=== PATIENT | male | born 1950 | race Caucasian/White ===

== ENCOUNTER 2023-11-12 10:28 | Outpatient (CLI) | payer OTHER, SELFPAY ==
[2023-11-12 10:56] VITALS: BP 101/82; PULSE 60; RESP 18; TEMP 36.9; O2SAT 98
[2023-11-12 11:33] VITALS: PULSE 62; O2SAT 97
[2023-11-12 11:40] VITALS: O2SAT 98
[2023-11-12 11:50] VITALS: O2SAT 98
--- NOTE | 2023-11-12 12:01 | DI.RAD_ITS ---
Exam(s) XR PAIN CLINIC FLUORO JOINT IN EXAM: XR PAIN CLINIC FLUORO JOINT IN CLINICAL HISTORY: DX: Left Knee Osteoarthritis. TECHNIQUE: Fluoroscopy was provided for the referring physician for guidance with performing pain cl inic injection procedure. COMPARISON: XR PAIN CLINIC FLUORO JOINT IN from 11/12/2023 FINDINGS: Please see procedure note for details. Fluoro time: 19.8 seconds RADIATION DOSE DELIVERED: Ka,r=1.16 mGy
--- NOTE | 2023-11-12 12:02 | DI.RAD_ITS ---
Exam(s) XR PAIN CLINIC FLUORO JOINT IN EXAM: XR PAIN CLINIC FLUORO JOINT IN CLINICAL HISTORY: DX: Right Knee Osteoarthritis. TECHNIQUE: Fluoroscopy was provided for the referring physician for guidance with performing pain cl inic injection procedure. COMPARISON: No exams were available for comparison FINDINGS: Please see procedure note for details. Fluoro time: 34.9 seconds RADIATION DOSE DELIVERED: celina Barkley=2.49 mGy
[2023-11-12] MEDS: Omnipaque 240 MG/ML 50 ML BTL IJ (12:06)
[2023-11-12] MEDS: Nerve Block Tray 1 EACH MC (12:06)
[2023-11-12] MEDS: Bupivacaine 0.5% Pres-Free 10 ML VIAL IJ (12:07)
[2023-11-12 12:08] VITALS: O2SAT 97
--- NOTE | 2023-11-12 12:32 | PDOC.PAIN_ITS ---
Date of service: 11/12/23 Time of Service: 12:41 Pain Managment Procedure Note Procedure Note Procedure Note: Genicular Nerve Block ? Location: Left and Right Superior Lateral, Superior Medial, and Inferior Medial Genicular Nerve Branches ? Pre-procedure Diagnosis: M25.561 Pain in right knee , M17.11 Unliateral primary osteoarthritis, right knee M25.562 Pain in left knee? , M17.12 Unliateral primary osteoarthritis, left knee ? Post-procedure Diagnosis:? The same as above ? Sedation:? none ? Estimated blood loss:? less than 2 cc ? Surgeon:? Pieter Do MD ? Procedure Detail:? The patient was brought to the procedure room and placed in the supine position on the fluoroscopy table. The patient's right knee was then placed on pillows as tolerated to facilitate modest flexion of the joint and offset from the non-treated knee in the lateral view. Time out was performed in the procedure room with nursing staff confirming the patient's identity, procedure to be performed, allergies, and any blood thinning or anti-p latelet medications. The skin of the target knee was prepped with ChloraPrep in a sterile fashion. Sterile gloves were used, a face mask was worn, and new single dose vials of all medications were used with the top being swabbed with alcohol and given time to dry prior to withdrawal of medication.? The superior medial and superior lateral epicondyles of the femur as well as the distal aspect of the medial tibial epicondyle was identified using an AP fluoroscopic view.?Ethyl Chloride was used to anesthetize the skin. With fluoroscopic guidance, three [25] gauge, Quincke needles were advanced until reaching the mid-level of the femur and tibia at the expected location of the genicular nerve branches. 0.5 mL of contrast was injected at each of the nerve sites after negative aspiration.? Contrast showed appropriate spread covering the expected location of the genicular nerves. Again, after negative aspiration, 1 mL of 0.5% Bupivacaine was injected at each of the sites.? The needles were gently removed. This was repeated for the left knee.? The patient tolerated the procedure well and was transferred to the recovery room in stable condition.? Permanent images were saved and recorded. PLAN: pt will f/u for genicular RF if he meets the criteria.Pain went from 8/10 to 4/10 in both knees (50% reduction).
== END 2023-11-12 10:29 | disposition home or self-care (01) ==
LOC: PC 10:29
PROVIDERS: Visit Provider Anesthesiology Pain Medicine
DX: M17.0 Bilateral primary osteoarthritis of knee
CPT/HCPCS: 00123; 64454; 77002; J0665; Q9967

== ENCOUNTER 2023-12-29 08:18 | Outpatient (CLI) | payer OTHER, SELFPAY ==
[2023-12-29] VITALS (10 sets, daily range): BP systolic 121–168; BP diastolic 66–91; PULSE 48–58; RESP 20; TEMP 36.6; O2SAT 96–100
--- NOTE | 2023-12-29 06:00 | DI.RAD_ITS ---
Exam(s) XR PAIN CLINIC FLUORO JOINT IN EXAM: XR PAIN CLINIC FLUORO JOINT IN CLINICAL HISTORY: DX: Right Knee Osteoarthritis TECHNIQUE: 2D and realtime digital imaging was performed. CONTRAST MATERIAL: Refer to procedure report. COMPARISON: No exams were available for comparison FINDINGS: Fluoroscopy was provided for Dr. Do during the performance of a right genicular radiofrequency ablation. Please refer to the procedure report for complete details. Ka,r=3.7 mGy IMPRESSION: RADIATION DOSE DELIVERED: 0.0 0.0 0
--- NOTE | 2023-12-29 09:26 | PDOC.PAIN_ITS ---
Date of service: 12/29/23 Time of Service: 10:25 Pain Managment Procedure Note Procedure Note Procedure Note: ?Genicular Nerve COOLED RF ? Location: Right Superior Lateral, Superior Medial, Suprapatellar and Inferior Medial Genicular Nerve Branches ? Pre-procedure Diagnosis: M25.561 Pain in right knee , M17.11 Unliateral primary osteoarthritis, right knee ? Post-procedure Diagnosis:? The same as above ? Sedation: VERSED 1 MG, Fentanyl 25mcg ? Estimated blood loss:? less than 2 cc ? Surgeon:? Pieter Do MD ? Procedure Detail:? The patient was brought to the procedure room and placed in the supine position on the fluoroscopy table. The patient's? right knee was then placed on pillows as tolerated to facilitate modest flexion of the joint and offset from the non-treated knee in the lateral view. Time out was performed in the procedure room with nursing staff confirming the patient's identity, procedure to be performed, allergies, and any blood thinning or anti- platelet medications. The skin of the target knee was prepped with ChloraPrep in a sterile fashion. Sterile gloves were used, a face mask was worn, and new single dose vials of all medications were used with the top being swabbed with alcohol and given time to dry prior to withdrawal of medication.? The superior medial and superior lateral epicondyles of the femur, 3cm above the patella midline femur as well as the distal aspect of the medial tibial epicondyle was identified using an AP fluoroscopic view.? With fluoroscopic guidance, three? 17-gauge 4mm active tip radiofrequency cannula was advanced to the periosteum at this location.? AP and lateral views confirmed appropriate placement. Motor testing was negative for stimulation up to 2 V. Next 1 cc of 2% lidocaine was injected through each needle tip. Lesioning was then carried out at 60 degrees Celsius for 150 seconds? The needles were gently removed.? The patient tolerated the procedure well and was transferred to the recovery room in stable condition.? Permanent images were saved and recorded. Pain: pre-preprocedure 10/03 post procedure 08/03 PLAN: Pt will f/u prn. If he get good relief will proceed with the left knee.
[2023-12-29] MEDS: fentaNYL 100 MCG/2 ML VIAL IVP (09:49)
[2023-12-29] MEDS: Midazolam 2 MG/2 ML VIAL IVP (09:49)
[2023-12-29] MEDS: Nerve Block Tray 1 EACH MC (10:16)
[2023-12-29] MEDS: Lidocaine 2% Multi-Dose 20 ML VIAL IJ (10:22)
== END 2023-12-29 08:19 | disposition home or self-care (01) ==
LOC: PC 08:18
PROVIDERS: Visit Provider Anesthesiology Pain Medicine
DX: M17.11 Unilateral primary osteoarthritis, right knee (principal)
CPT/HCPCS: 00123; 64624; 77002; J2003; J2250; J3010

== ENCOUNTER 2024-02-02 07:37 | Outpatient (CLI) | payer OTHER, SELFPAY ==
[2024-02-02] VITALS (10 sets, daily range): BP systolic 106–136; BP diastolic 59–71; PULSE 48–54; RESP 20; TEMP 36.7; O2SAT 98–100
--- NOTE | 2024-02-02 07:00 | DI.RAD_ITS ---
Exam(s) XR PAIN CLINIC FLUORO JOINT IN EXAM: XR PAIN CLINIC FLUORO JOINT IN CLINICAL HISTORY: DX: Left Knee Osteoarthritis TECHNIQUE: 2D and realtime digital imaging was performed. Radiologist not present. CONTRAST MATERIAL: None. COMPARISON: No exams were available for comparison FINDINGS: Fluoroscopy was provided for pain management therapy. Please refer to procedure report or details. Radiation Exposure Index: Ka,r=3.38 mGy IMPRESSION: As above. RADIATION DOSE DELIVERED:
--- NOTE | 2024-02-02 07:48 | PDOC.PAIN_ITS ---
Date of service: 02/02/24 Time of Service: 09:27 Pain Managment Procedure Note Procedure Note Procedure Note: ?Genicular Nerve COOLED RF ? Location: Left Superior Lateral, Superior Medial, Suprapatellar and Inferior Medial Genicular Nerve Branches ? Pre-procedure Diagnosis: M25.562 Pain in left knee? , M17.12 Unliateral primary osteoarthritis, left knee ? Post-procedure Diagnosis:? The same as above ? Sedation: VERSED 1MG Fentanyl 25 mcg ? Estimated blood loss:? less than 2 cc ? Surgeon:? Pieter Do MD ? Procedure Detail:? The patient was brought to the procedure room and placed in the supine position on the fluoroscopy table. The patient's? LEFT knee was then placed on pillows as tolerated to facilitate modest flexion of the joint and offset from the non-treated knee in the lateral view. Time out was per formed in the procedure room with nursing staff confirming the patient's identity, procedure to be performed, allergies, and any blood thinning or anti- platelet medications. The skin of the target knee was prepped with ChloraPrep in a sterile fashion. Sterile gloves were used, a face mask was worn, and new single dose vials of all medications were used with the top being swabbed with alcohol and given time to dry prior to withdrawal of medication.? The superior medial and superior lateral epicondyles of the femur, 3cm above the patella midline femur as well as the distal aspect of the medial tibial epicondyle was identified using an AP fluoroscopic view.? With fluoroscopic guidance, three? 17-gauge 4mm active tip radiofrequency cannula was advanced to the periosteum at this location.? AP and lateral views confirmed appropriate placement. Motor testing was negative for stimulation up to 2 V. Next 1 cc of 2% lidocaine was injected through each needle tip. Lesioning was then carried out at 60 degrees Celsius for 150 seconds? The needles were gently removed.? The patient tolerated the procedure well and was transferred to the recovery room in stable condition.? Permanent images were saved and recorded. Pain: pre-preprocedure 09/02 post procedure 06/03 PLAN: Pt will f/u prn. Repeat prn COMMENT: Patient is now approximately 5 weeks out from right knee which was significantly more arthritic. He has not gotten much relief from this. He will explore surgical options.
[2024-02-02] MEDS: Midazolam 2 MG/2 ML VIAL IVP (08:59)
[2024-02-02] MEDS: fentaNYL 100 MCG/2 ML VIAL IVP (08:59)
[2024-02-02] MEDS: Lactated Ringers 500 ML 80 ML IV (09:00)
[2024-02-02] MEDS: Nerve Block Tray 1 EACH MC (09:10)
[2024-02-02] MEDS: Lidocaine 2% Multi-Dose 20 ML VIAL IJ (09:33)
== END 2024-02-02 07:38 | disposition home or self-care (01) ==
LOC: PC 07:37
PROVIDERS: Visit Provider Anesthesiology Pain Medicine
DX: M25.562 Pain in left knee (principal); M17.12 Unilateral primary osteoarthritis, left knee
CPT/HCPCS: 00123; 64624; 77002; J2003; J2250; J3010